=== PATIENT | female | born 1985 | race Caucasian/White ===

== ENCOUNTER 2018-09-17 08:34 | Emergency (ER) | payer MEDICAID, OTHER ==
[2018-09-17 08:35] VITALS: BMI 30.7
[2018-09-17 08:46] VITALS: PULSE 70; O2SAT 99
--- NOTE | 2018-09-17 10:50 | RAD ---
Date of service: 09/17/2018 PROCEDURE: Left ring finger radiographs. HISTORY: r/o fx COMPARISON: None. TECHNIQUE: AP radiograph of the left hand, as well as spot oblique and lateral images of left ring finger were obtained. FINDINGS: LEFT RING FINGER: Avulsion fracture at the base of the middle phalanx. The finding is marked on the study for review. remainder of the left hand (as seen on the AP view) is grossly unremarkable. JOINTS: Normal. SOFT TISSUES: Normal. OTHER FINDINGS: None. IMPRESSION: Avulsion fracture 4th digit base of proximal phalanx.
--- NOTE | 2018-09-17 11:08 | ED PDOC ---
Upper Extremity Pain/Injury Time Seen by Provider: 09/17/18 09:17 Chief Complaint (Nursing): Upper Extremity Problem/Injury Chief Complaint (Provider): finger injury History Per: Patient History/Exam Limitations: no limitations Onset/Duration Of Symptoms: Other (1 day) Current Symptoms Are (Timing): Better Severity: Mild Additional Complaint(s): Pt. reports injuring her left 4th digit when she was pulling up a banner and it snapped, hitting her left 4th digit. Pt. reports mild swelling since, no pain unless shes bending it. Pt. is right handed, works as a dental hygenist. Past Medical History Reviewed: Historical Data, Nursing Documentation, Vital Signs Vital Signs: Last Vital Signs Temp 98.0 F 09/17/18 08:45 Pulse 70 09/17/18 08:45 Resp 16 09/17/18 08:45 BP 117/73 09/17/18 08:45 Pulse Ox 99 09/17/18 08:45 - Medical History PMH: No Chronic Diseases - Family History Family History: States: Unknown Family Hx - Home Medications Home Medications: Ambulatory Orders Medication Instructions Recorded No Known Home Med 07/05/15 - Allergies Allergies/Adverse Reactions: Allergies Allergy/AdvReac Type Severity Reaction Status Date / Time No Known Allergies Allergy Verified 07/04/15 23:10 Review of Systems ROS Statement: Except As Marked, All Systems Reviewed And Found Negative Musculoskeletal: Positive for: Other (left 4th digit pain) Physical Exam - Reviewed Nursing Documentation Reviewed: Yes Vital Signs Reviewed: Yes - Physical Exam Extremity: Positive for: Other (4th finger: mild swelling and tenderness over mid 4th digit, FROM. neurovascular status intact.) - ECG O2 Sat by Pulse Oximetry: 99 Medical Decision Making Medical Decision Making: Pain med offered, pt. declined. Finger x-ray: (+) chip fracture, proximal aspect of mid phalanx Finger immobilized with aluminum finger splint applied by surveillance camera technician, pt. tolerated well, neurovascular status intact. Pt. advised ortho f/u, wear splint. Disposition - Clinical Impression Clinical Impression: Finger fracture, left - Patient ED Disposition Is Patient to be Admitted: No Counseled Patient/Family Regarding: Studies Performed, Diagnosis - Disposition Referrals: Leroy Oliveira MD [Staff Provider] - Disposition: Routine/Home Disposition Time: 11:09 Condition: IMPROVED Instructions: Finger Fracture Forms: [employer] (Lao), [facility] ED School/Work Excuse
[2018-09-17 11:42] VITALS: BP 115/70; RESP 18; TEMP 97.8
== END 2018-09-17 11:41 | disposition home or self-care (01) ==
LOC: H.ER 08:34
DX: S62.605A Fracture of unspecified phalanx of left ring finger, initial encounter for closed fracture (principal); W20.8XXA Other cause of strike by thrown, projected or falling object, initial encounter